=== PATIENT | male | born 1995 | race Caucasian/White ===

== ENCOUNTER 2020-03-09 19:52 | Emergency (ER) | payer MEDICAID ==
[~2020-03-09] VITALS: Ht 157.5 cm; Wt 53.3 kg
[2020-03-09 20:09] VITALS: Ht 157.5 cm; Wt 53.3 kg
[2020-03-09 21:23] VITALS: BP 123/82
== END 2020-03-09 21:15 | disposition home or self-care (01) ==
LOC: ED 19:52
DX: S60.111A Contusion of right thumb with damage to nail, initial encounter (principal); J45.909 Unspecified asthma, uncomplicated; W23.0XXA Caught, crushed, jammed, or pinched between moving objects, initial encounter; Y93.89 Activity, other specified; Y92.810 Car as the place of occurrence of the external cause; Y99.8 Other external cause status
CPT/HCPCS: Q0092